=== PATIENT | female | born 1980 | race Caucasian/White ===

== ENCOUNTER 2019-05-18 12:18 | Emergency (ER) | payer OTHER ==
[2019-05-18 12:23] VITALS: BP 119/61; PULSE 84; TEMP 98.2; BMI 25.6
--- NOTE | 2019-05-18 13:21 | PDOC ---
*Physical Exam - Vital Signs Last Vital Signs Temp Pulse Resp BP Pulse Ox 98.2 F 84 18 119/61 99 05/18/19 12:21 05/18/19 12:21 05/18/19 12:21 05/18/19 12:21 05/18/19 12:21 - Physical Exam 05/18/19 13:20 The patient was examined by [NORM Kay] under my direct supervision. I personally evaluated the patient. I concur with the above findings and the plan of care. ED Treatment Course - LABORATORY CBC & Chemistry Diagram: 05/18/19 13:15 05/18/19 13:15 Discharge - Discharge Information Problems reviewed: Yes Clinical Impression/Diagnosis: Dizziness Condition: Improved Disposition: HOME - Additional Discharge Information Prescriptions: Meclizine HCl 25 mg PO Q6H PRN #20 tablet PRN Reason: dizziness - Follow up/Referral Referrals: Natacha Herman MD [Primary Care Provider] - 2 Days - Patient Discharge Instructions Patient Printed Discharge Instructions: DI for Vertigo Additional Instructions: Thank you for choosing [facility]. It was a pleasure taking care of you. Take Meclizine as needed for dizziness. This medication can make you drowsy Please follow-up with your doctor in 2 days Return to the Emergency Department if your symptoms worsen or persist, you have fever, shortness of breath, chest pain, severe abdominal pain, vomiting, weakness of extremities (arms and/or legs), changes in vision or walking or other concerning symptoms. - Post Discharge Activity
[2019-05-18 13:29] LABS: BASO % 0.8 % (0-2.0); HEMATOCRIT 35.7 % (32.4-45.2); HEMOGLOBIN 12.4 GM/dL (10.7-15.3); LYMPH % 15.4 % (8-40); MCH 32.6 pg (25.7-33.7); MCHC 34.8 g/dl (32.0-36.0); MEAN CELL VOLUME 93.6 fl (80-96); MEAN PLT VOLUME 7.3 fl (7.5-11.1); MONO % 4.2 % (3.8-10.2); NEUT % 79.6 % (42.8-82.8); PLATELET COUNT 458 K/MM3 (134-434); RBC 3.81 M/mm3 (3.60-5.2); RDW 13.3 % (11.6-15.6); WHITE BLOOD COUNT 9.1 K/mm3 (4.0-10.0)
[2019-05-18 14:01] LABS: BILIRUBIN,TOTAL 0.2 mg/dL (0.2-1); BLOOD UREA NITROGEN 9.7 mg/dL (7-18); CREATININE 0.7 mg/dL (0.55-1.3); POTASSIUM 4.5 mmol/L (3.5-5.1); TOT PROT 8.3 g/dl (6.4-8.2)
[2019-05-18] MEDS ORDERED: MECLIZINE HCL 25 MG TABLET (FP) PO ONE (14:59)
[2019-05-18] MEDS ORDERED: MECLIZINE HCL 25 MG TABLET (FP) ONE (15:13)
--- NOTE | 2019-05-18 15:46 | PDOC ---
History of Present Illness - General Chief Complaint: Lightheaded Stated Complaint: DIZZINESS Time Seen by Provider: 05/18/19 12:41 History Source: Patient Exam Limitations: No Limitations Past History - Past Medical History Allergies/Adverse Reactions: Allergies Allergy/AdvReac Type Severity Reaction Status Date / Time No Known Allergies Allergy Verified 05/18/19 12:23 Home Medications: Ambulatory Orders NK [No Known Home Medication] 10/23/14 COPD: No - Psycho Social/Smoking Cessation Hx Smoking History: Never smoked Information on smoking cessation initiated: No Hx Alcohol Use: No Drug/Substance Use Hx: No Substance Use Type: None *Physical Exam - Vital Signs Last Vital Signs Temp Pulse Resp BP Pulse Ox 98.2 F 84 18 119/61 99 05/18/19 12:21 05/18/19 12:21 05/18/19 12:21 05/18/19 12:21 05/18/19 12:21 - Physical Exam General Appearance: No: Apparent Distress HEENT: positive: EOMI, ELI Respiratory/Chest: positive: Lungs Clear, Normal Breath Sounds. negative: Respiratory Distress Cardiovascular: positive: Regular Rhythm, Regular Rate, S1, S2. negative: Murmur Gastrointestinal/Abdominal: positive: Normal Bowel Sounds, Soft. negative: Tender, Distended, Guarding, Rebound Neurologic: positive: cosmetic manager II-XII NML intact, Fully Oriented, Alert, Normal Mood/ Affect, Motor Strength 5/5 ED Treatment Course - LABORATORY CBC & Chemistry Diagram: 05/18/19 13:15 05/18/19 13:15 - ADDITIONAL ORDERS Additional order review: Laboratory Results 05/18/19 05/18/19 05/18/19 13:15 13:15 13:15 Sodium 140 Potassium 4.5 Chloride 105 Carbon Dioxide 29 Anion Gap 6 L BUN 9.7 Creatinine 0.7 Est GFR (CKD-EPI)AfAm 125.61 Est GFR (CKD-EPI)NonAf 108.38 Random Glucose 90 Calcium 10.0 Total Bilirubin 0.2 AST 13 L ALT 19 Alkaline Phosphatase 79 Troponin I < 0.02 Total Protein 8.3 H Albumin 4.0 Urine HCG, Qual Negative 05/18/19 13:15 RBC 3.81 MCV 93.6 MCHC 34.8 RDW 13.3 MPV 7.3 L Neutrophils % 79.6 Lymphocytes % 15.4 Monocytes % 4.2 Eosinophils % 0.0 Basophils % 0.8 - Medications Given in the ED: ED Medications Discontinued Medications Generic Name Dose Route Start Last Admin Trade Name Ros PRN Reason Stop Dose Admin Meclizine HCl 50 mg 05/18/19 14:59 05/18/19 15:10 Antivert - PO 05/18/19 15:00 50 mg ONCE ONE Administration Medical Decision Making - Medical Decision Making 38 y/o F with no sig pmh presents with feeling lightheaded x 1 week along with nausea. Symptoms were particularly worse today. Also mentions L shoulder pain from today; denies trauma. Denies fever, URI sxs, sob, cp, abd pain, n/v/d, urinary sxs. Dizziness is not positional. Mentions last year in [place], she felt lightheaded as well and was told she ?abnormal EKG and was told to f/u with ? labor law professor for ?stress test, but she never had it done. Also mentions ? vertigo around 2 years ago though denies any room spinning sensation currently. EKG: NSR at 70 bpm, T wave flattening lead V3 Labs reviewed and unremarkable UCG negative Trop negative No focal deficits on exam D/W Dr. Vallecillo - recommends repeat trop in 2 hrs Repeat trop sent and pending Patient also given PO fluids Will also trial Meclizine to see if it helps (patient requesting something as states unsure if this is like her previous vertigo) 05/18/19 15:42 Pending results of repeat trop Signed out to DEVANTE Russ 05/18/19 16:09 Discharge - Discharge Information Problems reviewed: Yes Clinical Impression/Diagnosis: Dizziness - Follow up/Referral Referrals: Natacha Herman MD [Primary Care Provider] - - Patient Discharge Instructions - Post Discharge Activity
--- NOTE | 2019-05-18 16:14 | PDOC ---
*Physical Exam - Vital Signs Last Vital Signs Temp Pulse Resp BP Pulse Ox 98.2 F 84 18 119/61 99 05/18/19 12:21 05/18/19 12:21 05/18/19 12:21 05/18/19 12:21 05/18/19 12:21 ED Treatment Course - LABORATORY CBC & Chemistry Diagram: 05/18/19 13:15 05/18/19 13:15 - ADDITIONAL ORDERS Additional order review: Laboratory Results 05/18/19 05/18/19 05/18/19 15:20 13:15 13:15 Sodium Potassium Chloride Carbon Dioxide Anion Gap BUN Creatinine Est GFR (CKD-EPI)AfAm Est GFR (CKD-EPI)NonAf Random Glucose Calcium Total Bilirubin AST ALT Alkaline Phosphatase Troponin I < 0.02 < 0.02 Total Protein Albumin Urine HCG, Qual Negative 05/18/19 13:15 Sodium 140 Potassium 4.5 Chloride 105 Carbon Dioxide 29 Anion Gap 6 L BUN 9.7 Creatinine 0.7 Est GFR (CKD-EPI)AfAm 125.61 Est GFR (CKD-EPI)NonAf 108.38 Random Glucose 90 Calcium 10.0 Total Bilirubin 0.2 AST 13 L ALT 19 Alkaline Phosphatase 79 Troponin I Total Protein 8.3 H Albumin 4.0 Urine HCG, Qual 05/18/19 13:15 RBC 3.81 MCV 93.6 MCHC 34.8 RDW 13.3 MPV 7.3 L Neutrophils % 79.6 Lymphocytes % 15.4 Monocytes % 4.2 Eosinophils % 0.0 Basophils % 0.8 - Medications Given in the ED: ED Medications Discontinued Medications Generic Name Dose Route Start Last Admin Trade Name Freq PRN Reason Stop Dose Admin Meclizine HCl 50 mg 05/18/19 14:59 05/18/19 15:10 Antivert - PO 05/18/19 15:00 50 mg ONCE ONE Administration Medical Decision Making - Medical Decision Making Repeat trop negative Patient notices some improvement in dizziness with Meclizine Stable for dc 05/18/19 16:11 Discharge - Discharge Information Problems reviewed: Yes Clinical Impression/Diagnosis: Dizziness Condition: Improved Disposition: HOME - Admission No - Additional Discharge Information Prescriptions: Meclizine HCl 25 mg PO Q6H PRN #20 tablet PRN Reason: dizziness Prescription Drug Monitoring Program (I-STOP) results: I-STOP not reviewed - Follow up/Referral Referrals: Natacha Herman MD [Primary Care Provider] - 2 Days - Patient Discharge Instructions Patient Printed Discharge Instructions: DI for Vertigo Additional Instructions: Thank you for choosing [facility]. It was a pleasure taking care of you. Take Meclizine as needed for dizziness. This medication can make you drowsy Please follow-up with your doctor in 2 days Return to the Emergency Department if your symptoms worsen or persist, you have fever, shortness of breath, chest pain, severe abdominal pain, vomiting, weakness of extremities (arms and/or legs), changes in vision or walking or other concerning symptoms. - Post Discharge Activity
--- NOTE | 2019-05-19 10:42 | EKG ---
Test Reason : Blood Pressure : / mmHG Vent. Rate : 070 BPM Atrial Rate : 070 BPM P-R Int : 168 ms QRS Dur : 084 ms QT Int : 384 ms P-R-T Axes : 062 052 048 degrees QTc Int : 414 ms NORMAL SINUS RHYTHM NORMAL ECG NO PREVIOUS ECGS AVAILABLE Confirmed by KOBY ELDER MD ([id number]) on 05/19/2019 10:41:46 AM Referred By: Confirmed By:KOBY ELDER MD
== END 2019-05-18 16:14 | disposition home or self-care (01) ==
LOC: JER 12:18
DX: R42 Dizziness and giddiness (principal)
CPT/HCPCS: 36415; 80053; 84484; 84703; 85025; 93005; 93010; 99283-25

== ENCOUNTER 2020-08-28 14:59 | Emergency (ER) | payer OTHER ==
[2020-08-28 15:11] VITALS: BP 123/78; PULSE 77; BMI 24.7
[2020-08-28 15:13] VITALS: TEMP 97.3
== END 2020-08-28 15:31 | disposition home or self-care (01) ==
LOC: JERFT 14:59
DX: N64.4 Mastodynia (principal); M25.512 Pain in left shoulder
CPT/HCPCS: 99282-25

== ENCOUNTER 2023-03-17 07:58 | Emergency (ER) | payer OTHER ==
[2023-03-17 08:07] VITALS: BP 120/80; PULSE 97; RESP 16; TEMP 98; BMI 24.7
== END 2023-03-17 08:38 | disposition home or self-care (01) ==
LOC: JERFT 07:58
DX: Z20.822 Contact with and (suspected) exposure to COVID-19 (principal)
CPT/HCPCS: 0241U-QW; 99283-25